=== PATIENT | female | born 1975 | race Caucasian/White ===

== ENCOUNTER 2017-02-14 19:10 | Emergency (ER) | payer MEDICAID ==
[~2017-02-14] VITALS: Ht 149.9 cm; Wt 61.0 kg
[2017-02-14] MEDS ORDERED: OXYcodone/APAP 5/325MG TABLET PO ONE (19:30)
[2017-02-14] MEDS ORDERED: AMIT50TA PO (19:37)
[2017-02-14] MEDS ORDERED: IBUP200T48 PO (19:38)
[2017-02-14] MEDS ORDERED: SUMA100T4 PO (19:38)
[2017-02-14] MEDS ORDERED: METH500T7 PO (19:38)
[2017-02-14] MEDS ORDERED: OXYcodone/APAP 5/325MG TABLET ONE (19:40)
[2017-02-14 20:09] VITALS: BP 109/81
== END 2017-02-14 20:11 | disposition home or self-care (01) ==
LOC: ED 20:00
DX: G89.11 Acute pain due to trauma (principal); M79.641 Pain in right hand; Z90.49 Acquired absence of other specified parts of digestive tract; Z98.51 Tubal ligation status; W22.8XXA Striking against or struck by other objects, initial encounter; Y93.89 Activity, other specified; Y92.89 Other specified places as the place of occurrence of the external cause; Y99.9 Unspecified external cause status
CPT/HCPCS: 99284

== ENCOUNTER 2018-01-24 10:04 | Emergency (ER) | payer MEDICAID ==
[~2018-01-24] VITALS: Ht 149.9 cm; Wt 50.0 kg
[~2018-01-24 10:04] MED LIST: AMIT50TA PO; IBUP200T49 PO; METH500T7 PO; SUMA100T4 PO
[2018-01-24 10:09] VITALS: BP 98/61
[2018-01-24] MEDS ORDERED: KETOROLAC 30 MG/1 ML ONE (10:28)
[2018-01-24] MEDS ORDERED: KETOROLAC 60 MG/2 ML IM ONE (10:30)
== END 2018-01-24 11:06 | disposition home or self-care (01) ==
LOC: ED 10:42
DX: S90.01XA Contusion of right ankle, initial encounter (principal); S90.31XA Contusion of right foot, initial encounter; F17.200 Nicotine dependence, unspecified, uncomplicated; Z98.51 Tubal ligation status; Z90.49 Acquired absence of other specified parts of digestive tract; Z88.8 Allergy status to other drugs, medicaments and biological substances; Z88.6 Allergy status to analgesic agent; W22.8XXA Striking against or struck by other objects, initial encounter; Y93.89 Activity, other specified; Y92.488 Other paved roadways as the place of occurrence of the external cause; Y99.8 Other external cause status
CPT/HCPCS: 73610; 73630; 96372; 99284; J1885

== ENCOUNTER 2018-06-19 15:50 | Emergency (ER) | payer MEDICAID ==
[~2018-06-19] VITALS: Ht 149.9 cm; Wt 63.1 kg
[2018-06-19 15:53] VITALS: BP 108/66
== END 2018-06-19 16:22 | disposition home or self-care (01) ==
LOC: ED 15:57
DX: D21.9 Benign neoplasm of connective and other soft tissue, unspecified (principal); D22.9 Melanocytic nevi, unspecified; J45.909 Unspecified asthma, uncomplicated; F17.200 Nicotine dependence, unspecified, uncomplicated; Z88.5 Allergy status to narcotic agent
CPT/HCPCS: 99282

== ENCOUNTER 2021-01-12 20:24 | Emergency (ER) | payer MEDICAID ==
[~2021-01-12] VITALS: Ht 149.9 cm; Wt 71.3 kg
[~2021-01-12 20:24] MED LIST changes: +METH-639 PO; -METH500T7 PO
[2021-01-12 20:28] VITALS: BP 109/74
== END 2021-01-12 21:54 | disposition left against medical advice (07) ==
LOC: ED 21:00
DX: R10.9 Unspecified abdominal pain (principal); R11.0 Nausea; Z53.21 Procedure and treatment not carried out due to patient leaving prior to being seen by health care provider